=== PATIENT | female | born 1990 | race African-American/Black ===

== ENCOUNTER 2020-10-03 13:50 | Emergency (ER) | payer SELFPAY ==
[~2020-10-03] VITALS: Ht 160 cm; Wt 54.0 kg
[2020-10-03 14:09] VITALS: BP 115/58
[2020-10-03] MEDS ORDERED: ACETAMINOPHEN 325MG TABLET PO STA (15:55)
[2020-10-03] MEDS ORDERED: CYCLOBENZAPRINE 10MG TABLET PO ONE (16:00)
[2020-10-03] MEDS ORDERED: NAPR-681 PO (17:44)
[2020-10-03] MEDS ORDERED: CYCL5TAB PO (17:44)
== END 2020-10-03 18:05 | disposition home or self-care (01) ==
LOC: ER 15:21
DX: G44.89 Other headache syndrome (principal)
CPT/HCPCS: 36415; 81025; 84702; 99283